=== PATIENT | female | born 1990 | race Hispanic/Latino ===

== ENCOUNTER → 2021-08-24 | Outpatient (CLI) | payer OTHER ==
[~2021-08-24] MED LIST: GADOBENATE DIMEGLUMINE 1 ML IV ONE
[2021-08-24 08:37] LABS: CREATININE, SERUM 0.68 mg/dL (0.57-1.11)
== END ==
LOC: MRI 07:52
PROVIDERS: ATTEND Internal Medicine Gastroenterology
DX: K83.8 Other specified diseases of biliary tract (principal)
CPT/HCPCS: 36415; 74183; 82565; 84520; A9577